=== PATIENT | female | born 1985 | race Caucasian/White ===

== ENCOUNTER 2021-12-21 15:23 | Emergency (ER) | payer OTHER ==
[2021-12-21] MEDS ORDERED: NAPROXEN 500 MG TABLET PO ONE (15:34)
[2021-12-21 15:52] VITALS: BP 105/67; PULSE 79; TEMP 99.2; BMI 24.4
[2021-12-21] MEDS ORDERED: NAPROXEN 500 MG TABLET ONE (15:52)
== END 2021-12-21 17:21 | disposition home or self-care (01) ==
LOC: FER 15:23
DX: S69.92XA Unspecified injury of left wrist, hand and finger(s), initial encounter (principal); W10.9XXA Fall (on) (from) unspecified stairs and steps, initial encounter
CPT/HCPCS: 73110-TC-LT-FY; 73130-TC-LT-FY; 99284-25